=== PATIENT | female | born 1990 | race Caucasian/White ===

== ENCOUNTER 2019-10-14 21:32 | Emergency (ER) | payer MEDICAID ==
[~2019-10-14] VITALS: Ht 167.6 cm; Wt 95.2 kg
[2019-10-15 06:30] VITALS: BP 117/74
== END 2019-10-15 06:44 | disposition home or self-care (01) ==
LOC: ER 21:32
DX: M79.18 Myalgia, other site (principal); M25.512 Pain in left shoulder
CPT/HCPCS: 73030; 99285